=== PATIENT | male | born 1985 | race Caucasian/White ===

== ENCOUNTER → 2018-06-22 | Outpatient (CLI) | payer OTHER ==
[~2018-06-22] MED LIST: CEPH500C PO; CYCL10TA45 PO; NAPR-591 PO
--- NOTE | 2018-06-22 12:40 | Diagnostic Imaging Report ---
INDICATION: Right hand injury. AP, oblique, and lateral views of the right hand are obtained. FINDINGS: There is irregularity involving the base of the fifth metacarpal bone, which may be related to nonacute fracture. Otherwise, no acute fracture or malalignment is identified, and there is no abnormal lytic or sclerotic focus. IMPRESSION: Probable subacute intra-articular fracture at the proximal base of fifth metacarpal. Dictated by: Dictated on workstation # [id number]
== END ==
LOC: RAD 12:07
DX: S69.91XA Unspecified injury of right wrist, hand and finger(s), initial encounter (principal)
CPT/HCPCS: 73130

== ENCOUNTER 2019-01-11 17:46 | Emergency (ER) | payer BC, OTHER ==
[~2019-01-11] VITALS: Ht 180.3 cm; Wt 77.1 kg
[2019-01-11] MEDS ORDERED: LACTATED RINGERS 1,000 ML IV ONE ×2 (18:47→19:00)
[2019-01-11 18:53] LABS: BASOPHILS % (AUTO) 0 % (0-10); EOSINOPHILS # (AUTO) 0.2 10^3/uL (0.0-0.3); EOSINOPHILS % (AUTO) 2 % (0-10); HEMATOCRIT 37 % (40-54); HEMOGLOBIN 12.8 G/DL (13.3-17.7); LYMPHOCYTES % (AUTO) 23 % (12-44); MEAN CORPUSCULAR HEMOGLOBIN 32 PG (25-34); MEAN CORPUSCULAR HGB CONC 35 G/DL (32-36); MEAN CORPUSCULAR VOLUME 93 FL (80-99); MEAN PLATELET VOLUME 10.3 FL (7.4-10.4); MONOCYTES # (AUTO) 0.6 X 10^3 (0.0-1.0); MONOCYTES % (AUTO) 7 % (0-12); NEUTROPHILS # (AUTO) 6.1 X 10^3 (1.8-7.8); NEUTROPHILS % (AUTO) 68 % (42-75); PLATELET COUNT 260 10^3/uL (130-400); RED CELL DISTRIBUTION WIDTH 12.1 % (10.0-14.5)
--- NOTE | 2019-01-11 18:54 | ED General ---
General Chief Complaint: General Problems/Pain Stated Complaint: DEHYDRATED Nursing Triage Note: PT REPORTS BEING SEEN BY PCP THIS AM AND HAVING LAB WORK DONE. PCP OFFICE CALLED PT AND TOLD HIM HE WAS GOING INTO ACUTE RENAL FAILURE AND WAS DEHYDRATED AND NEEDED TO COME TO THE ED FOR FLUID AND EVALUATION. Nursing Sepsis Screen: No Definite Risk Source of Information: Patient, Spouse Exam Limitations: No Limitations History of Present Illness Date Seen by Provider: Jan 11, 2019 Time Seen by Provider: 18:40 Initial Comments Patient presents to ER by private conveyance with his spouse and she's complaining that for the past month he's been having some intermittent diarrhea and now here lately having some nausea and vomiting. He has had some dull achiness in his left lower quadrant. He went to the doctor's office of Dr. Watkins had some labs drawn this morning and this afternoon they called him and told me to come in and get some IV fluids may see him back to recheck him Wednesday. He went to outpatient but there are to close so he came to the ER. His pain is rated as a 1 or 2 out of 10. He is not having any nausea presently. He has had a vasectomy but no other abdominal surgeries. 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 He says he is always sweating. He denies a history of urachal bowel or inflammatory bowel nor is he had an EGD or colonoscopy but it was suggested that he might have these when he was at the doctor's office this morning. Allergies and Home Medications Allergies Coded Allergies: No Known Drug Allergies (Unverified , 01/11/19) Home Medications Cyclobenzaprine Hcl 10 Mg Tablet, 10 MG PO Q8H, (Reported) Naproxen 500 Mg Tablet.dr, 500 MG PO Q4H, (Reported) Patient Home Medication List Home Medication List Reviewed: Yes Review of Systems Review of Systems Constitutional: chills, diaphoresis; No fever EENTM: No ear discharge, No ear pain Respiratory: No cough, No phlegm Cardiovascular: No chest pain, No edema Gastrointestinal: No abdominal pain, No constipation; diarrhea, nausea, vomiting Past Tjqctnh-Dhhsqk-Vlphpg Hx Patient Social History Alcohol Use: Regular Use Alcohol Beverage of Choice: Cheap Liquor Recreational Drug Use: No Smoking Status: Current Everyday Smoker Recent Foreign Travel: No Contact w/Someone Who Travel: No Recent Infectious Disease Expo: No Recent Hopitalizations: No Physical Abuse: No Sexual Abuse: No Immunizations Up To Date Date of Influenza Vaccine: May 30, 2013 Seasonal Allergies Seasonal Allergies: No Past Medical History Surgeries: Yes Vasectomy Respiratory: No Cardiac: Yes Hypertension Neurological: No Reproductive Disorders: No Sexually Transmitted Disease: No Genitourinary: No Gastrointestinal: No Musculoskeletal: No Endocrine: No HEENT: No Cancer: No Psychosocial: Yes Anxiety Integumentary: No Blood Disorders: No Physical Exam Vital Signs Vital Signs - First Documented 01/11/19 01/11/19 18:07 19:08 Temp 96.8 Pulse 91 Resp 16 B/P (MAP) 112/63 (79) Pulse Ox 99 O2 Delivery Room Air Capillary Refill : Less Than 3 Seconds Height, Weight, BMI Height: 5'11.00" Weight: 170lbs. oz. 77.650981ce; BMI Method:Stated General Appearance: No Apparent Distress, WD/WN Eyes: Bilateral Eye Normal Inspection, Bilateral Eye PERRL, Bilateral Eye EOMI HEENT: PERRL/EOMI; No Moist Mucous Membranes Neck: Full Range of Motion, Normal Inspection Respiratory: No Accessory Muscle Use, No Respiratory Distress Cardiovascular: Regular Rate, Rhythm, No Edema, Normal Peripheral Pulses Gastrointestinal: Normal Bowel Sounds, Non Tender, Soft Extremity: Normal Capillary Refill, Normal Inspection, No Pedal Edema Neurologic/Psychiatric: Alert, Oriented x3 Skin: Normal Color, Warm/Dry Progress/Results/Core Measures Suspected Sepsis Recent Fever Within 48 Hours: No Infection Criteria Present: None New/Unexplained Altered Menta: No Sepsis Screen: No Definite Risk SIRS Temperature:96.8 Pulse: 91 Respiratory Rate: 16 Laboratory Tests 01/11/19 18:21: White Blood Count 9.0 Blood Pressure 112 /63 Mean: 79 Laboratory Tests 01/11/19 18:21: Creatinine 2.68H, Platelet Count 260, Total Bilirubin 0.4 Results/Orders Lab Results Laboratory Tests Test 01/11/19 18:21 Range/Units White Blood Count 9.0 4.3-11.0 10^3/uL Red Blood Count 3.98 L 4.35-5.85 10^6/uL Hemoglobin 12.8 L 13.3-17.7 G/DL Hematocrit 37 L 40-54 % Mean Corpuscular Volume 93 80-99 FL Mean Corpuscular Hemoglobin 32 25-34 PG Mean Corpuscular Hemoglobin Concent 35 32-36 G/DL Red Cell Distribution Width 12.1 10.0-14.5 % Platelet Count 260 130-400 10^3/uL Mean Platelet Volume 10.3 7.4-10.4 FL Neutrophils (%) (Auto) 68 42-75 % Lymphocytes (%) (Auto) 23 12-44 % Monocytes (%) (Auto) 7 0-12 % Eosinophils (%) (Auto) 2 0-10 % Basophils (%) (Auto) 0 0-10 % Neutrophils # (Auto) 6.1 1.8-7.8 X 10^3 Lymphocytes # (Auto) 2.0 1.0-4.0 X 10^3 Monocytes # (Auto) 0.6 0.0-1.0 X 10^3 Eosinophils # (Auto) 0.2 0.0-0.3 10^3/uL Basophils # (Auto) 0.0 0.0-0.1 10^3/uL Sodium Level 136 135-145 MMOL/L Potassium Level 4.0 3.6-5.0 MMOL/L Chloride Level 104 98-107 MMOL/L Carbon Dioxide Level 20 L 21-32 MMOL/L Anion Gap 12 5-14 MMOL/L Blood Urea Nitrogen 53 H 7-18 MG/DL Creatinine 2.68 H 0.60-1.30 MG/DL Estimat Glomerular Filtration Rate 27 BUN/Creatinine Ratio 20 Glucose Level 110 H 70-105 MG/DL Calcium Level 9.5 8.5-10.1 MG/DL Corrected Calcium 9.1 8.5-10.1 MG/DL Total Bilirubin 0.4 0.1-1.0 MG/DL Aspartate Amino Transf (AST/SGOT) 17 5-34 U/L Alanine Aminotransferase (ALT/SGPT) 16 0-55 U/L Alkaline Phosphatase 52 40-136 U/L C-Reactive Protein High Sensitivity 0.18 0.00-0.50 MG/DL Total Protein 7.3 6.4-8.2 GM/DL Albumin 4.5 3.2-4.5 GM/DL My Orders Orders - BRIAN FROST Cbc With Automated Diff (01/11/19 18:47) Comprehensive Metabolic Panel (01/11/19 18:47) Hs C Reactive Protein (01/11/19 18:47) Ed Iv/Invasive Line Start (01/11/19 18:47) Lactated Ringers (Lr 1000 Ml Iv Solution (01/11/19 18:47) Lactated Ringers (Lr 1000 Ml Iv Solution (01/11/19 19:00) Medications Given in ED Current Medications Medications Dose Ordered Sig/Jude Route Start Time Stop Time Status Last Admin Dose Admin Lactated Ringer's 1,000 ml @ 0 mls/hr Q0M ONCE IV 01/11/19 18:47 01/11/19 18:49 DC 01/11/19 18:53 1,000 MLS/HR Lactated Ringer's 1,000 ml @ 1,000 mls/hr Q1H ONCE IV 01/11/19 19:00 01/11/19 19:59 01/11/19 19:42 1,000 MLS/HR Vital Signs/I&O 01/11/19 01/11/19 18:07 19:08 Temp 96.8 97.9 Pulse 91 76 Resp 16 20 B/P (MAP) 112/63 (79) 103/60 (74) Pulse Ox 99 100 O2 Delivery Room Air Capillary Refill : Less Than 3 Seconds Blood Pressure Mean: 79 Progress Note : Time: 19:26 Progress Note 2 L of lactated Ringer's and basic labs. The original goals for him to get fluids and follow up outpatient so we will not try and reproduce with a very done outpatient. We recommended he look into a colonoscopy/EGD as necessary to workup his mobile. Also given conservative counseling for heat exhaustion. Departure Impression Primary Impression: Dehydration after exertion Additional Impression: ILA (acute kidney injury) Disposition: 01 HOME, SELF-CARE Condition: Stable Departure-Patient Inst. Decision time for Depature: 20:00 Referrals: CASEY RAMIREZ MD (PCP/Family) Primary Care Physician Patient Instructions: Dehydration, Adult (DC), Acute Kidney Failure Add. Discharge Instructions: Drink lots of fluids. Sports drinks are acceptable. Avoid caffeine or alcohol. Do not take your blood pressure medicines until you are given the okay from her primary care doctor. Use Zofran prescribed by your primary office as necessary for vomiting. Take it easy and do not work too hard for the next week. All discharge instructions reviewed with patient and/or family. Voiced understanding. Work/School Note: Work Release Form Date Seen in the Emergency Department: Jan 11, 2019 Return to Work: Jan 12, 2019 Restrictions: Need Release from Doctor Other Restrictions Listed Below: Light duty until 01/16/19. BRIAN FROST Jan 11, 2019 18:54
--- NOTE | 2019-01-11 18:57 | NUR ---
report from kenisha stein.
--- NOTE | 2019-01-11 18:57 | NUR ---
CARE GIVEN AND REPORT GIVEN TO ERENDIRA MENDEZ.
[2019-01-11 19:05] LABS: ALBUMIN 4.5 GM/DL (3.2-4.5); BILIRUBIN,TOTAL 0.4 MG/DL (0.1-1.0); CALCIUM 9.5 MG/DL (8.5-10.1); CREATININE SERUM 2.68 MG/DL (0.60-1.30); TOTAL PROTEIN 7.3 GM/DL (6.4-8.2)
[2019-01-11 19:08] VITALS: BP 103/60
--- NOTE | 2019-01-11 19:10 | NUR ---
pt here with " my ". pt ALERT GTCS 15. PT DENIES ABD PAIN AND DENIES CHEST PAIN. PT DENIES NAUSEA AND SAYS NO V/D SINCE THIS AM. DENIES DYSPNEA AND NO ACUTE SIGHNS OF DYSPNEA NOTED. LUNGS CTA BILATERALLY. ABD SOFT NONDISTENDED TENDER TO PALPATION LLQ ABD ONLY. PT HAS 1ST OF 2 LITER LR BOLUS GOING. 400 FROM 1ST LITER COMPLETED THUS FAR AND RUNNING GOOD W/O OFF PUMP.
--- NOTE | 2019-01-11 19:47 | NUR ---
another nurse said 1st bolus done and they started 2nd bolus.
[2019-01-11 20:15] VITALS: BP 115/75
--- NOTE | 2019-01-11 20:20 | NUR ---
someone else d/cd pt
--- OUTSIDE RECORDS SUMMARY | 2019-01-11 23:30 | XMS REPORT ---
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
--- OUTSIDE RECORDS SUMMARY | 2019-01-11 23:30 | XMS REPORT | Continuity of Care Document ---
Author Organization Unknown Address Unknown Allergies Active Description Code Type Severity Reaction Onset Reported/Identified Relationship to Patient Clinical Status Yes No Known Drug Allergies [id number] Drug Allergy Unknown N/A 01/11/2019 Medications There is no data. Problems Date Dx Coded Attending Type Code Diagnosis Diagnosed By 03/29/2012 Ot 883.1 03/29/2012 Ot E000.8 03/29/2012 Ot E849.0 03/29/2012 Ot E922.4 09/27/2013 NATAANEL GREEN APRN Ot 401.9 HYPERTENSION NOS 06/07/2014 Ot 722.52 06/23/2018 CASEY RAMIREZ MD Ot S69.91XA UNSP INJURY OF RIGHT WRIST, HAND AND FIN 08/30/2018 CASEY RAMIREZ MD Ot S69.91XA UNSP INJURY OF RIGHT WRIST, HAND AND FIN 08/30/2018 CASEY RAMIREZ MD Ot S69.91XA UNSP INJURY OF RIGHT WRIST, HAND AND FIN 09/29/2018 CASEY RAMIREZ MD Ot S69.91XA UNSP INJURY OF RIGHT WRIST, HAND AND FIN 11/28/2018 CASEY RAMIREZ MD Ot S69.91XA UNSP INJURY OF RIGHT WRIST, HAND AND FIN 01/11/2019 CASEY RAMIREZ MD Ot S69.91XA UNSP INJURY OF RIGHT WRIST, HAND AND FIN 01/11/2019 CASEY RAMIREZ MD Ot S69.91XA UNSP INJURY OF RIGHT WRIST, HAND AND FIN Procedures There is no data. Results Test Result Range Complete blood count (CBC) with automated white blood cell (WBC) differential - 01/11/19 18:21 Blood leukocytes automated count (number/volume) 9.0 10*3/uL 4.3-11.0 Blood erythrocytes automated count (number/volume) 3.98 10*6/uL 4.35-5.85 Venous blood hemoglobin measurement (mass/volume) 12.8 g/dL 13.3-17.7 Blood hematocrit (volume fraction) 37 % 40-54 Automated erythrocyte mean corpuscular volume 93 [foz_us] 80-99 Automated erythrocyte mean corpuscular hemoglobin (mass per erythrocyte) 32 pg 25-34 Automated erythrocyte mean corpuscular hemoglobin concentration measurement (mass/volume) 35 g/dL 32-36 Automated erythrocyte distribution width ratio 12.1 % 10.0- 14.5 Automated blood platelet count (count/volume) 260 10*3/uL 130-400 Automated blood platelet mean volume measurement 10.3 [foz_us] 7.4-10.4 Automated blood neutrophils/100 leukocytes 68 % 42-75 Automated blood lymphocytes/100 leukocytes 23 % 12-44 Blood monocytes/100 leukocytes 7 % 0-12 Automated blood eosinophils/100 leukocytes 2 % 0-10 Automated blood basophils/100 leukocytes 0 % 0-10 Blood neutrophils automated count (number/volume) 6.1 10*3 1.8-7.8 Blood lymphocytes automated count (number/volume) 2.0 10*3 1.0-4.0 Blood monocytes automated count (number/volume) 0.6 10*3 0.0- 1.0 Automated eosinophil count 0.2 10*3/uL 0.0-0.3 Automated blood basophil count (count/volume) 0.0 10*3/uL 0.0-0.1 Comprehensive metabolic panel - 01/11/19 18:21 Serum or plasma sodium measurement (moles/volume) 136 mmol/L 135-145 Serum or plasma potassium measurement (moles/volume) 4.0 mmol/L 3.6-5.0 Serum or plasma chloride measurement (moles/volume) 104 mmol/L 98-107 Carbon dioxide 20 mmol/L 21-32 Serum or plasma anion gap determination (moles/volume) 12 mmol/L 5-14 Serum or plasma urea nitrogen measurement (mass/volume) 53 mg/dL 7-18 Serum or plasma creatinine measurement (mass/volume) 2.68 mg/dL 0.60-1.30 Serum or plasma urea nitrogen/creatinine mass ratio 20 NRG Serum or plasma creatinine measurement with calculation of estimated glomerular filtration rate 27 NRG Serum or plasma glucose measurement (mass/volume) 110 mg/dL 70-105 Serum or plasma calcium measurement (mass/volume) 9.5 mg/dL 8.5-10.1 Serum or plasma total bilirubin measurement (mass/volume) 0.4 mg/dL 0.1-1.0 Serum or plasma alkaline phosphatase measurement (enzymatic activity/volume) 52 U/L 40-136 Serum or plasma aspartate aminotransferase measurement (enzymatic activity/volume) 17 U/L 5-34 Serum or plasma alanine aminotransferase measurement (enzymatic activity/volume) 16 U/L 0-55 Serum or plasma protein measurement (mass/volume) 7.3 g/dL 6.4-8.2 Serum or plasma albumin measurement (mass/volume) 4.5 g/dL 3.2-4.5 CALCIUM CORRECTED 9.1 mg/dL 8.5-10.1 Serum or plasma C reactive protein measurement (mass/volume) - 01/11/19 18:21 Serum or plasma C reactive protein measurement (mass/volume) 0.18 mg/dL 0.00-0.50 Encounters ACCT No. Visit Date/Time Discharge Status Pt. Type Provider Facility Loc./Unit Complaint [id number] 01/11/2019 17:47:00 01/11/2019 20:17:00 DIS Emergency BRIAN FROST MD [facility] ER DEHYDRATED [id number] 06/22/2018 12:07:00 06/22/2018 23:59:59 CLS Outpatient ASHLEY CAMPUZANO, CASEY Bustamante [facility] RAD PAIN IN RIGHT HAND [id number] 09/27/2013 18:50:00 09/27/2013 20:17:00 DIS Emergency NATANAEL GREEN APRN [facility] ER ELEVATED BLOOD PRESSURE [id number] 03/29/2012 21:43:00 Document Registration [id number] 12/25/2008 08:46:00 Document Registration
== END 2019-01-11 20:17 | disposition home or self-care (01) ==
LOC: EDUNIT# 17:46 → ER 17:47
DX: E86.0 Dehydration (principal); N17.9 Acute kidney failure, unspecified; I10 Essential (primary) hypertension; F41.9 Anxiety disorder, unspecified; F17.200 Nicotine dependence, unspecified, uncomplicated; Z98.52 Vasectomy status
CPT/HCPCS: 36415; 80053; 85025; 86141; 96360

== ENCOUNTER → 2019-07-05 | Outpatient (CLI) | payer BC ==
--- NOTE | 2019-07-05 15:54 | Diagnostic Imaging Report ---
INDICATION: Left jaw pain status post recent fall. COMPARISON: None. FINDINGS: Lateral open and closed views of the mandible as well as Fong view of the mandible were obtained. No acute fracture or dislocation of the mandible is identified. Left temporomandibular joint space is partially obscured secondary to overlying soft tissue and osseous structures, but the left temporomandibular joint space appears appropriate. No unexpected radiopaque foreign bodies are seen. IMPRESSION: 1. Unremarkable radiographic exam of the mandible. Dictated by: Dictated on workstation # [id number]
== END ==
LOC: RAD 15:11
PROVIDERS: ATTEND Nurse Practitioner Family
DX: R68.84 Jaw pain (principal); W19.XXXA Unspecified fall, initial encounter
CPT/HCPCS: 70328